=== PATIENT | male | born 1945 | race Caucasian/White ===

== ENCOUNTER 2023-12-10 09:39 | Outpatient (AMB) | payer OTHER, SELFPAY ==
--- NOTE | 2023-12-10 09:19 | A.OFFPC_ITS ---
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 Intake Note: New patient visit Allergies clopidogrel [From Plavix] Allergy (Unknown, Verified 12/10/23 09:27) Rash sulfamethoxazole [From Bactrim] Allergy (Unknown, Verified 12/10/23 09:27) Rash trimethoprim [From Bactrim] Allergy (Unknown, Verified 12/10/23 09:27) Rash Tobacco use date assessed: 12/10/23 Fall risk assessment: No Falls in past year Last assessed Fall Risk: 12/10/23 Dental Screening Dental Screen Date: 12/10/23 Did you have a dental visit in the last 12 months?: Yes Did you have a dental problem in the last 6 months where you did not have access to dental care?: No Was dental information given to patient?: Patient has dentist HPI HPI Comments History of Present Illness Details The patient is an 78 year old male with a past medical history of CAD s/p status post NC with PCI with stent to RCA 1998 & 2008, diabetes, htn, hld, GERD, PUD, low back pain, anxiety 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 Blood pressure is well controlled. Follows with [facility] GERD: Stable on omeprazole BPH: On flomax 0.8mg daily. Viagra 100mg daily Insomnia: Doing well on prn zolpidem. has advancing dementia. ROS CONSTITUTIONAL: Denies weight loss, fever and chills. HEENT: Denies changes in vision and hearing. RESPIRATORY: Denies SOB and cough. CV: Denies palpitations and CP GI: Denies abdominal pain, nausea, vomiting and diarrhea. : Denies dysuria and urinary frequency. MSK: Denies new myalgia and joint pain. SKIN: Denies rash and pruritus. NEUROLOGICAL: Denies headache PSYCHIATRIC: Denies recent changes in mood. PHYSICAL EXAM: GENERAL: Alert and oriented x 3. NAD EYES: EOMI. Anicteric. HENT: Moist mucous membranes. No scleral icterus. No cervical lymphadenopathy. LUNGS: Clear to auscultation bilaterally. CARDIOVASCULAR: Regular rate and rhythm. No murmur. No JVD. ABDOMEN: Soft, non-tender +bs EXTREMITIES: No edema. Non-tender. SKIN: No rashes or lesions. Warm. NEUROLOGIC: No focal neurological deficits. CN II-XII grossly intact PSYCHIATRIC: Cooperative. Appropriate mood and affect [facility] Medical History CAD S/P percutaneous coronary angioplasty Myocardial infarction Sinusitis Stable angina Macular degeneration PUD (peptic ulcer disease) History of BPH GERD (gastroesophageal reflux disease) GIB (gastrointestinal bleeding) Ex-cigarette smoker Diverticulitis of sigmoid colon Coronary atherosclerosis of [place] coronary artery H/O degenerative disc disease Benign essential hypertension Surgical History H/O tooth extraction Hx of colonoscopy Family History Mother Lung cancer Smoker Father Stroke Smoker Sister Cancer, metastatic Maternal Grandmother Diabetes Social History Housing: House Patient Tobacco Use Status: Former Tobacco user Cigarette Packs Per Day: 1 Years Smoked: 10 e-Cigarette/Vaping Use: Never Used Second Hand Smoke Exposure: No service: Yes Current occupational status: retired Cognitive needs: No Hearing needs: No Vision needs: Yes (macular degeneration) Questionnaire AUDIT C Alcohol Use Questionnaire (AUDIT-C) 1. How often do you have a drink containing alcohol?: Monthly or less 2. How many drinks containing alcohol do you have on a typical day when you are drinking?: 1 or 2 3. How often do you have six or more drinks on one occasion?: Never Total Score: 1 Physical exam (Primary Care) Vital Signs: Last Vital Signs Temp 97.9 F 12/10/23 09:52 Pulse 62 12/10/23 09:52 Resp 14 12/10/23 09:52 BP 134/80 12/10/23 09:52 Pulse Ox 97 12/10/23 09:52 Oxygen Delivery Method Room Air 12/10/23 09:52 BMI result Body Mass Index 22.5 Tobacco/Smoking Status: Tobacco use Status Tobacco use date assessed 12/10/23 12/10/23 09:34 Patient Tobacco Use Status Former Tobacco user 12/10/23 09:34 e-Cigarette/Vaping Use Never Used 12/10/23 09:34 Coding Level of Care Code Est Pt Level 5 (35718) Diagnoses CAD S/P percutaneous coronary angioplasty I25.10; Z98.61 Gastroesophageal reflux disease, unspecified whether esophagitis present K21.9 Esophagitis presence: esophagitis presence not specified Prediabetes R73.03 Anxiety F41.9 Time Spent (min) 44 Assessment & Plan Assessment & Plan (1) CAD S/P percutaneous coronary angioplasty: Code(s): I25.10 - Atherosclerotic heart disease of [place] coronary artery without angina pectoris; Z98.61 - Coronary angioplasty status Category: Medical Plan: stable. no angina. compliant with medications. BP controlled (2) GERD (gastroesophageal reflux disease): Code(s): K21.9 - Gastro-esophageal reflux disease without esophagitis Category: Medical Qualifiers: Esophagitis presence: esophagitis presence not specified Qualified Code(s): K21.9 - Gastro-esophageal reflux disease without esophagitis Plan: stable on PPI (3) Prediabetes: Code(s): R73.03 - Prediabetes Category: Medical Plan: monitor labs. making good dietary changes. (4) Anxiety: Code(s): F41.9 - Anxiety disorder, unspecified Category: Medical Plan: stable on current medications Orders: Orders Lipid Panel 12/10/23 F41.9 - Anxiety disorder, unspecified, I25.10 - Atherosclerotic heart disease of [place] coronary artery without angina pectoris, K21.9 - Gastro-esophageal reflux disease without esophagitis, R73.03 - Prediabetes, Z12.5 - Encounter for screening for malignant neoplasm of prostate, Z98.61 - Coronary angioplasty status Hemoglobin A1c 12/10/23 F41.9 - Anxiety disorder, unspecified, I25.10 - Ather osclerotic heart disease of [place] coronary artery without angina pectoris, K21.9 - Gastro-esophageal reflux disease without esophagitis, R73.03 - Prediabetes, Z12.5 - Encounter for screening for malignant neoplasm of prostate, Z98.61 - Coronary angioplasty status Complete Blood Count Auto Diff 12/10/23 F41.9 - Anxiety disorder, unspecified, I25.10 - Atherosclerotic heart disease of [place] coronary artery without angina pectoris, K21.9 - Gastro-esophageal reflux disease without esophagitis, R73.03 - Prediabetes, Z12.5 - Encounter for screening for malignant neoplasm of prostate, Z98.61 - Coronary angioplasty status Comprehensive Met. Panel 12/10/23 F41.9 - Anxiety disorder, unspecified, I25.10 - Atherosclerotic heart disease of [place] coronary artery without angina pectoris, K21.9 - Gastro-esophageal reflux disease without esophagitis, R73.03 - Prediabetes, Z12.5 - Encounter for screening for malignant neoplasm of prostate, Z98.61 - Coronary angioplasty status Prostate Specific Antigen 12/10/23 F41.9 - Anxiety disorder, unspecified, I25.10 - Atherosclerotic heart disease of [place] coronary artery without angina pectoris, K21.9 - Gastro-esophageal reflux disease without esophagitis, R73.03 - Prediabetes, Z12.5 - Encounter for screening for malignant neoplasm of prostate, Z98.61 - Coronary angioplasty status Medications: New losartan 100 mg PO DAILY 90 tabs 3RF carvedilol 6.25 mg PO BID 180 tabs 3RF metronidazole 0.75% 1 appl topical DAILY 45 grams 3RF azelaic acid 20% (Azelex) 1 appl topical BID 50 grams 3RF clotrimazole 1% 1 appl topical QAM AND QHS 90 grams 3RF hydroxyzine HCl 25 mg PO BID 180 tabs 3RF omeprazole 20 mg PO DAILY 90 caps 3RF rosuvastatin 10 mg PO BEDTIME 90 tabs 3RF nitroglycerin do not exceed 3 doses per episode 0.4 mg sublingual Q5M PRN 20 tabs 0RF chest pain tamsulosin 0.8 mg (2 x 0.4 mg) PO DAILY 90 caps 3RF zolpidem 10 mg PO BEDTIME PRN 90 tabs 3RF sleep sildenafil administer 30 minutes to 4 hours before activity 100 mg PO DAILY PRN 30 tabs 3RF sexual activity
[2023-12-10 09:52] VITALS: BP 134/80; PULSE 62; RESP 14; TEMP 36.6; O2SAT 97; BMI 22.5
== END 2023-12-10 10:43 | disposition home or self-care (01) ==
LOC: HO.HMCFM 09:40
PROVIDERS: PCP Internal Medicine; Visit Provider Internal Medicine
DX: I25.10 Atherosclerotic heart disease of native coronary artery without angina pectoris (principal); Z98.61 Coronary angioplasty status; K21.9 Gastro-esophageal reflux disease without esophagitis; R73.03 Prediabetes; F41.9 Anxiety disorder, unspecified

== ENCOUNTER 2023-12-10 10:52 | Outpatient (REF) | payer OTHER, SELFPAY ==
[2023-12-10 14:17] LABS: MANUAL DIFF FLAG NO
[2023-12-10 14:23] LABS: Basophils Percent Auto 0.5 % (0-2); Eosinophils Absolute Auto 0.2 X10*3/uL (0.0-0.4); Eosinophils Percent Auto 2.9 % (0-4); Hemoglobin 15.1 g/dl (14.0-18.0); Imm Gran Abs Auto 0.02 X10*3/uL (0.00-0.03); Imm Gran Pct Auto 0.3 % (0.0-0.4); Lymphocytes Absolute Auto 1.3 X10*3/uL (1.2-4.9); Lymphocytes Percent Auto 16.7 % (20-40); Mean Corpuscular HGB Conc 34.3 g/dl (31.0-36.0); Mean Corpuscular Hemoglobin 33.8 pg (27.0-33.0); Mean Corpuscular Volume 98.4 fL (80.0-98.0); Mean Platelet Volume 10.1 fL (9.4-12.4); Monocytes Absolute Auto 0.7 X10*3/uL (0.1-1.2); Monocytes Percent Auto 9.1 % (2-11); Neutrophils Absolute Auto 5.5 x10*3/uL (2.0-8.3); Neutrophils Percent Auto 70.5 % (45-73); Platelet Count 165 X10*3/uL (160-400); Red Blood Count 4.47 X10*6/uL (4.60-5.80); White Blood Count 7.8 X10*3/uL (4.8-10.8)
[2023-12-10 14:36] LABS: Estimated Average Glucose 111 mg/dL; Hemoglobin A1C 146.6412 umol/L; Hemoglobin A1c % 5.5 % (<6.0); Total Hemoglobin (HGBA1C) 3965.1775 umol/L
[2023-12-10 14:41] LABS: Alanine Aminotransferase 26 U/L (0-40); Alkaline Phosphatase 88 U/L (39-117); Anion Gap 12 (12-20); Aspartate Amino Transferase 35 U/L (5-37); Bilirubin Total 0.8 mg/dL (0.0-1.0); Blood Urea Nitrogen 27 mg/dL (9-16); Calcium 8.9 mg/dL (8.4-10.2); Carbon Dioxide 25 mmol/L (22-29); Chloride 109 mmol/L (96-108); Cholesterol 116 mg/dL (<200); Estimated Glomerular Filt Rate > 60; Glucose Random 96 mg/dL (60-115); HDL Cholesterol 49 mg/dL (>40); LDL Cholesterol Calculated 58 mg/dL (<100); Potassium 4.2 mmol/L (3.3-5.1); Sodium 142 mmol/L (135-145); Total Protein 6.9 g/dL (6.5-8.0); Triglycerides 48 mg/dL (<150)
== END 2023-12-10 10:53 | disposition home or self-care (01) ==
LOC: HO.WFDLDS 10:52
PROVIDERS: Visit Provider Internal Medicine
DX: I25.10 Atherosclerotic heart disease of native coronary artery without angina pectoris (principal); Z98.61 Coronary angioplasty status; F41.9 Anxiety disorder, unspecified; K21.9 Gastro-esophageal reflux disease without esophagitis; Z12.5 Encounter for screening for malignant neoplasm of prostate; R73.03 Prediabetes
CPT/HCPCS: 36415; 80053; 80061; 83036; 84153; 85025